=== PATIENT | male | born 1975 | race Caucasian/White ===

== ENCOUNTER 2018-07-03 16:17 | Emergency (ER) | payer OTHER, MEDICARE ==
[~2018-07-03] VITALS: Ht 188 cm; Wt 87.5 kg
[2018-07-03] MEDS ORDERED: CLONIDINE HCL0.1 MG PO (21:52)
== END 2018-07-03 22:13 | disposition home or self-care (01) ==
LOC: ED 16:17
DX: F41.9 Anxiety disorder, unspecified (principal); F43.10 Post-traumatic stress disorder, unspecified; Z87.891 Personal history of nicotine dependence
CPT/HCPCS: 99283